=== PATIENT | male | born 1990 | race Caucasian/White ===

== ENCOUNTER → 2018-03-29 | Outpatient (CLI) | payer MEDICARE, MEDICAID, OTHER ==
[2018-04-02 00:07] LABS: OXCARBAZEPINE 13 ug/mL (10-35)
== END ==
LOC: M WUC 09:06
DX: D43.2 Neoplasm of uncertain behavior of brain, unspecified (principal)
CPT/HCPCS: 36415

== ENCOUNTER 2019-01-05 12:23 | Emergency (ER) | payer MEDICARE, MEDICAID ==
[~2019-01-05] VITALS: Ht 172.7 cm; Wt 75.0 kg
[2019-01-05] MEDS ORDERED: OXCA300T14 PO (12:33)
--- NOTE | 2019-01-05 12:57 | REP ---
Clinical: Seizure . Comparison: None . Findings: The ventricles, sulci, and cisterns are normal in position and appearance. Hayden-white differentiation is maintained. No acute intracranial hemorrhage, mass/mass effect, pathology or trauma/injury. No evidence for acute infarction. No extra-axial fluid collection. Calvarium is intact. Paranasal sinuses and mastoid air cells are clear. Impression: Normal noncontrast head CT. No evidence for acute intracranial pathology or trauma/injury. Electronically Signed by Slava Calderon MD 01/05/2019 12:48 P
[2019-01-05 12:59] LABS: BASO # 0.1 10^3/uL (0.0-0.2); BASO % 0.4 % (0.0-1.0); EOS # 0.2 10^3/uL (0.0-0.50); EOS % 1.8 % (0.0-3.0); HEMATOCRIT 42.4 % (42.0-52.0); LYMPH # 2.5 10^3/uL (1.5-6.5); MEAN CORPUSCULAR HEMOGLOBIN 29.7 pg (27.0-33.0); MEAN CORPUSCULAR HGB CONC 35.4 g/dl (32.0-36.5); MONO # 0.8 10^3/uL (0.0-0.8); MONO % 6.8 % (0.0-5.0); NEUTROPHILS # 8.4 10^3/uL (1.8-7.7); NEUTROPHILS % 69.7 % (36.0-66.0); PLATELET COUNT, AUTOMATED 252 10^3/uL (150-450); RED BLOOD COUNT 5.05 10^6/uL (4.30-6.10)
[2019-01-05] MEDS ORDERED: OXcarbazepine 300 MG TAB PO STA (13:07)
[2019-01-05 13:32] LABS: ALBUMIN 3.8 GM/DL (3.2-5.2); ALT/SGPT 18 U/L (12-78); BILIRUBIN,DIRECT 0.2 MG/DL (0.0-0.2); BILIRUBIN,TOTAL 0.4 MG/DL (0.2-1.0); BLOOD UREA NITROGEN 8 MG/DL (7-18); CALCIUM LEVEL 8.2 MG/DL (8.5-10.1); CARBON DIOXIDE LEVEL 24 MEQ/L (21-32); CHLORIDE LEVEL 106 MEQ/L (98-107); CPK CREATINE PHOSPHOKINASE 711 U/L (39-308); CREATININE FOR GFR 1.16 MG/DL (0.70-1.30); GLOMERULAR FILTRATION RATE > 60.0 (>60); GLUCOSE, FASTING 88 MG/DL (70-100); MB/CK RELATIVE INDEX 1.97 (< OR =4); POTASSIUM SERUM 3.3 MEQ/L (3.5-5.1); SODIUM LEVEL 141 MEQ/L (136-145); TOTAL PROTEIN 6.9 GM/DL (6.4-8.2); TROPONIN I < 0.02 NG/ML (< 0.10)
[2019-01-05 14:00] VITALS: BP 141/66
--- NOTE | 2019-01-06 21:46 | ECGEPIP ---
[facility] - ED Test Date: 2019-01-05 Pat Name: MARY WESTON Department: Room: - Gender: Male Residential Monitor: RAKESH : 1990 Requested By: CARRIE TIWARI Order Number: [id number] Reading MD: Justin Braun Measurements Intervals Gay Rate: 89 P: 50 TN: 175 QRS: 59 QRSD: 92 T: 31 QT: 374 QTc: 456 Interpretive Statements SINUS RHYTHM INCOMPLETE RIGHT BUNDLE BRANCH BLOCK BENIGN EARLY REPOLARIZATION NO PRIORS FOR COMPARISON Electronically Signed on 01-06-2019 21:46:31 EDT by Justin Braun
== END 2019-01-05 14:20 | disposition home or self-care (01) ==
LOC: EDBD 12:23 → M ED 12:23
DX: G40.909 Epilepsy, unspecified, not intractable, without status epilepticus (principal); F99 Mental disorder, not otherwise specified

== ENCOUNTER → 2019-01-11 | Outpatient (CLI) | payer MEDICARE, MEDICAID ==
[~2019-01-11] MED LIST: OXCA300T14 PO
== END ==
LOC: M WUC 08:29
PROVIDERS: ATTEND Pediatrics
DX: D43.2 Neoplasm of uncertain behavior of brain, unspecified (principal); R56.9 Unspecified convulsions

== ENCOUNTER → 2019-02-21 | Outpatient (CLI) | payer MEDICARE, MEDICAID | LOC: M WUC 08:10 | PROVIDERS: ATTEND Pediatrics | DX: R56.9 Unspecified convulsions (principal) ==